=== PATIENT | male | born 1950 | race Hispanic/Latino ===

== ENCOUNTER 2016-10-21 09:19 | Day surgery (SDC) | payer MEDICARE ==
[~2016-10-21 09:19] MED LIST: HYDROmorphone 0.5 mg/0.5 ml ISec IVP ONE
[2016-10-21 10:34] VITALS: BMI 26.4
[2016-10-21] MEDS ORDERED: Lactated Ringer's 1,000 ML IV SCH (12:01)
[2016-10-21] MEDS ORDERED: Propofol 10 mg/ml Inj (20 ML) ONE (12:20)
[2016-10-21] MEDS ORDERED: Midazolam 2 MG/2 ML VIAL ONE (12:20)
[2016-10-21] MEDS: Bupivacaine 0.5% Inj(30mL) ONE ×2 (13:08→14:04)
--- NOTE | 2016-10-21 14:34 | PCM.SURG1 ---
Surgeon's Initial Post Op Note - Surgeon's Notes Surgeon: Juan Abrasive Sawyer: Tang Messer Pre-Operative Diagnosis: Left Inguinal hernia Operative Findings: inguinal hernia Post-Operative Diagnosis: left inguinal hernia Operation Performed: left inguinal hernia repair with mesh Specimen/Specimens Removed: hernia sac Estimated Blood Loss: EBL {In ML}: 20 Date of Surgery/Procedure: 10/21/16 Time of Surgery/Procedure: 13:00
[2016-10-21] MEDS ORDERED: HYDROmorphone 0.5 mg/0.5 ml ISec ONE (14:59)
[2016-10-21] MEDS ORDERED: HYDROmorphone 0.5 mg/0.5 ml ISec IVP STA (15:25)
[2016-10-21 15:53] VITALS: PULSE 60; RESP 18; TEMP 98.5
[2016-10-21 16:29] VITALS: BP 130/78; O2SAT 97
--- NOTE | 2016-10-21 19:03 | OP ---
PROCEDURE DATE: 10/21/2016 PREOPERATIVE DIAGNOSIS: Left inguinal hernia. POSTOPERATIVE DIAGNOSIS: Left inguinal hernia. OPERATION PERFORMED: Left inguinal herniorrhaphy. In the operating room, the patient was identified by name, number, procedure, laterality and my cecil. SURGEON: Dr. Martinez. ASSEMBLY OPERATOR: . DESCRIPTION OF PROCEDURE: The area was prepped and draped in the usual manner and after the success ul timeout, an incision was made in the creases of the groin. This was dissected using cautery down to the external oblique. The external oblique was easily seen ending in the external ring. The exte rnal oblique was opened in the direction of its fibers, carefully avoiding the nerves, , the undersurface was cleaned very nicely. The cord was seen going through the ring externally and this was circumscribed with a Adrián drain. Anterior medially, the small sac was found. It had a larger sac associated with it. This had been opened. This was then cleaned and a high dissection performe d. This was closed with Vicryl. High dissection completed. This was then pushed back in very nicel y and closed with a medium patch. It was sutured with Vicryl. The large cord was then circumscribed with a patch, sutured with a Vicryl, tamped in usual position and closed beneath the external obliqu e. The wound was injected with 30 mL of Marcaine. Carrie was closed with Vicryl and a subcuticular stitch placed, the testicle being put in its normal position. The wounds were injected with a total of 30 mL of 0.5 Marcaine. Nothing else was untoward. Lazaro Martinez MD cc: [id number] TT: 10/21/2016 19:03:02 [email or web address]
== END 2016-10-21 16:50 | disposition home or self-care (01) ==
LOC: SDS 09:19
PROVIDERS: ATTEND Surgery
DX: K40.90 Unilateral inguinal hernia, without obstruction or gangrene, not specified as recurrent (principal); I10 Essential (primary) hypertension
CPT/HCPCS: 49505; 82948; 88302; J0690; J1170 ×2; J2001; J2250; J2405; J2704; J3010; J7120 ×2

== ENCOUNTER 2018-03-01 07:52 | Day surgery (SDC) | payer MEDICARE ==
[2018-02-16 10:34] VITALS: BMI 27.9
[2018-03-01] MEDS ORDERED: Propofol 10 mg/ml Inj (20 ML) ONE (10:05)
[2018-03-01 11:00] VITALS: TEMP 97.6
[2018-03-01] MEDS ORDERED: Sodium Chloride 0.9% 1,000 ML IV SCH (11:00)
[2018-03-01 11:18] VITALS: O2SAT 98
[2018-03-01 12:01] VITALS: BP 130/75; PULSE 44; RESP 18
== END 2018-03-01 12:19 | disposition home or self-care (01) ==
LOC: ENDO 07:52
PROVIDERS: ATTEND Specialist
DX: Z12.11 Encounter for screening for malignant neoplasm of colon (principal); K63.5 Polyp of colon; K57.30 Diverticulosis of large intestine without perforation or abscess without bleeding; K64.8 Other hemorrhoids
CPT/HCPCS: 45380; 88305; J2704; J7030; J7040